=== PATIENT | female | born 1990 | race Caucasian/White ===

== ENCOUNTER 2022-12-05 18:26 | Emergency (ER) | payer OTHER, SELFPAY ==
[2022-12-05 18:35] VITALS: BP 126/82; PULSE 98; RESP 16; TEMP 36.6; O2SAT 100
--- NOTE | 2022-12-05 18:38 | ED.URI ---
HPI - URI/Sore Throat General Chief Complaint: Upper Respiratory Infection Stated Complaint: SWOLLEN TONSILS/SORE THROAT Time Seen by Provider: 12/05/22 18:45 Source: patient and RN notes reviewed Mode of arrival: ambulatory Limitations: no limitations History of Present Illness HPI Narrative: 32-year-old female presents with concern for sore throat, swollen tonsils. She reports she noticed some change starting over the weekend, she noticed large tonsils and white on her throat today. She denies fever, aches, chills, sweats, nasal congestion, rhinorrhea, body aches, chills, sweats, swollen lymph nodes, fatigue. MD elicited complaint: sore throat Related Data Allergies Allergy/AdvReac Type Severity Reaction Status Date / Time No Known Allergies Allergy Verified 12/05/22 18:53 Review of Systems Review of Systems: CONSTITUTIONAL: Denies malaise, chills, sweats, or fever. EYES: Denies visual changes, redness, or discharge. ENT: Denies rhinorrhea, congestion, sinus pain, otalgia. Reports sore throat. CARDIOVASCULAR: Denies chest pain, palpitations, or edema. RESPIRATORY: Denies cough. Denies dyspnea. GASTROINTESTINAL: Denies abdominal pain, nausea, vomiting, diarrhea SKIN: Denies rash or itching. MUSCULOSKELETAL: Denies myalgia. NEUROLOGIC: Denies headache. All systems reviewed & are unremarkable except as noted in HPI and below PMFSH Family History Family History (Updated 06/11/14 @ 07:13 by DOCTOR UNKNOWN) Mother Family history of osteoporosis Family history of lung cancer Patient's mother is Other Diabetes mellitus Family history of migraine headaches Hypertension Social History Social History Smoking status: Never smoker Second hand tobacco smoke exposure: No Alcohol intake: current Comments At time of signature, agree with nursing past medical, surgical, social and family history. There is no relevant family history pertinent to the presenting complaint Exam Narrative: GENERAL: Well-appearing, well-nourished, and in no acute distress. HEAD: Normocephalic EYES: PERRLA, conjunctivae clear ENT: Nares clear, no discharge. Mucous membranes moist. TM pearly duron with sharp light reflex bilaterally; no tragal tenderness. Oropharynx erythematous without lesions. Tonsils enlarged with copious exudate, no drooling, no hoarseness, no trismus, uvula midline. NECK: Supple. No lymphadenopathy CHEST: Clear to auscultation, breath sounds equal. No wheezing, rhonchi, rales, or stridor. No respiratory distress, speaks in full sentences. HEART: Regular rate and rhythm. No murmur heard. SKIN: Warm, dry, no rash. NEURO: Alert and oriented x3. PSYCH: Normal mood and affect Course Course Emergency Course: Patient is aware of diagnosis, understands and agrees to treatment plan. Anticipatory guidance given. Patient agrees to follow-up as directed and is aware of reasons to seek care at the emergency department. Portions of this record may have been created with voice recognition software Level of Care: Express Care Visit Vital Signs Vital signs: Vital Signs Temperature 97.8 F 12/05/22 18:35 Pulse Rate 98 12/05/22 18:35 Respiratory Rate 16 12/05/22 18:35 Blood Pressure 126/82 12/05/22 18:35 Pulse Oximetry 100 12/05/22 18:35 Oxygen Delivery Room Air 12/05/22 18:35 Temperature 97.8 F 12/05/22 18:35 Pulse Rate 98 12/05/22 18:35 Respiratory Rate 16 12/05/22 18:35 Blood Pressure 126/82 12/05/22 18:35 Pulse Oximetry 100 12/05/22 18:35 Oxygen Delivery Room Air 12/05/22 18:35 Reviewed. MDM - URI/Sore Throat MDM Narrative Medical decision making narrative: Differential diagnosis considered: Laguerre virus, strep pharyngitis, allergic rhinitis, upper respiratory tract infection, sinusitis, rhinosinusitis, nasopharyngitis. viral pharyngitis, otitis media, otitis externa, pneumonia, bronchitis, viral cough syndrome, viral syndrome, and influenza.
== END 2022-12-05 18:56 | disposition home or self-care (01) ==
PROVIDERS: Emergency Provider Nurse Practitioner; PCP Nurse Practitioner Family
DX: J03.90 Acute tonsillitis, unspecified (principal)
CPT/HCPCS: 87081; 87880; 99203; G0463

== ENCOUNTER 2024-07-24 16:04 | Inpatient (IN) | payer OTHER, SELFPAY ==
[2024-07-24] VITALS (18 sets, daily range): BP systolic 106–131; BP diastolic 52–72; PULSE 66–87; TEMP 36.3–36.4; BMI 28.4
--- NOTE | 2024-07-24 16:04 | LDADM ---
This patient, Kina Madera, was admitted to Labor/Delivery/Recovery 106 on 07/24/24 at 16:04. Plans for labor, pain management and were discussed with patient. Patient/family oriented to hospital policies and general routines including ID bracelet, bed and alarms, visiting hours, pain management, procedures, bathroom and other care routines, personal items, smoking policy, room service/diet and guest tray routines, infant security routines, and visiting hours. Patient/Family are encouraged to report perceived risks to care and to ask questions if they do not understand what they are told or what they should do. See OBIX for further documentation.
--- NOTE | 2024-07-24 18:08 | WPDOBADMIT ---
Obstetrics - Admit Note Admission Note: record reviewed. No pertinent additions to the history and/or any subsequent changes in the physical findings that are not consistent with the expected course of the were found. Additions to the history and/or subsequent changes in the physical findings follow. admit for IOL for postdates, has been uncomplicated, anticipate vaginal delivery
[2024-07-24 18:11] LABS: Basophils Percent Auto 0.3 % (0.2-1.2); Eosinophils Percent Auto 0.1 % (0-4.4); Hematocrit 33.1 % (37.0-47.0); Hemoglobin 11.2 g/dL (12.0-15.0); Immature Granulocyte Absolute 0.05 K/mm3 (0.00-0.031); Immature Granulocyte Percent A 0.4 % (0-0.5); Lymphocytes Absolute Auto 1.56 K/mm3 (0.9-3.2); Lymphocytes Percent Auto 13.9 % (18.3-44.2); Mean Corpuscular HGB Conc 33.8 g/dl (32-36); Mean Corpuscular Volume 88.7 fl (80-100); Mean Platelet Volume 10.1 fl (7.4-10.4); Monocytes Absolute Auto 0.6 K/mm3 (0.1-0.6); Monocytes Percent Auto 5.1 % (2.6-8.5); Neutrophils Percent Auto 80.2 % (45.5-73.1); Platelet Count Result 251 k/mm3 (150-375); Red Blood Count 3.73 M/mm3 (4.2-5.4); Red Cell Distribution Width 13.2 % (11.5-14.5); White Blood Count 11.3 K/mm3 (4.5-10.0)
--- NOTE | 2024-07-24 18:15 | WPDANESEPP ---
Anes - Eval Pre Procedure Procedure: Labor Epidural Date/Time: 07/24/24 18:15 Surgeon: Hawk Preop Diagnosis: Labor Pain Pre Op Diagnosis: IOL Patient Data Age: 33 Gender: F Height: 1.52 m Weight: 66 kg Allergies Allergy/AdvReac Type Severity Reaction Status Date / Time sulfamethoxazole Allergy Hives Verified 06/18/24 15:31 [From Bactrim] trimethoprim [From Bactrim] Allergy Hives Verified 06/18/24 15:31 Home Medications Medication Instructions Recorded Confirmed Type aspirin 81 mg chewable tablet 81 mg PO DAILY 06/18/24 06/18/24 History ferrous sulfate 325 mg (65 mg 325 mg PO DAILY 06/18/24 06/18/24 History iron) tablet vits no.126-ferrous fum 1 tablet PO DAILY 06/18/24 06/18/24 History 28 mg iron-folic acid 800 mcg tablet (Classic ) Laboratory Tests 07/24/24 17:00 WBC 11.3 H K/mm3 (4.5-10.0) RBC 3.73 L M/mm3 (4.2-5.4) Hgb 11.2 L g/dL (12.0-15.0) Hct 33.1 L % (37.0-47.0) MCV 88.7 fl (80-100) MCH 30.0 pg (26-34) MCHC 33.8 g/dl (32-36) RDW 13.2 % (11.5-14.5) Plt Count 251 k/mm3 (150-375) MPV 10.1 fl (7.4-10.4) Immature Gran % (Auto) 0.4 % (0-0.5) Neut % (Auto) 80.2 H % (45.5-73.1) Lymph % (Auto) 13.9 L % (18.3-44.2) [place] % (Auto) 5.1 % (2.6-8.5) Eos % (Auto) 0.1 % (0-4.4) Baso % (Auto) 0.3 % (0.2-1.2) Lymph # (Auto) 1.56 K/mm3 (0.9-3.2) [place] # (Auto) 0.6 K/mm3 (0.1-0.6) Eos # (Auto) 0.0 K/mm3 (0-0.3) Baso # (Auto) 0.0 K/mm3 (0.0-0.1) Abs Immat Gran (auto) 0.05 H K/mm3 (0.00-0.031) Absolute Neuts (auto) 9.0 H K/mm3 (1.3-6.7) Absolute Nucleated RBC 0.000 K/mm3 (0.0-0.012) Nucleated RBC % 0.0 % (0.0-0.2) RPR Pending HIV 1&2 Ab/P24 Ag 4thGn Pending : gestational age ([facility] 07/14/24, ) Patient hx anesthesia problems: none Family hx anesthesia problems: none Results Review: All pre-operative results and documents have been reviewed as part of the pre-operative evaluation. [facility] Family History Family History Mother Family history of osteoporosis Family history of lung cancer Patient's mother is Other Diabetes mellitus Family history of migraine headaches Hypertension Social History Social History Smoking status: Never smoker Second hand tobacco smoke exposure: No Alcohol intake: current Substance use: never Do You Feel Safe in your Home?: Yes Lack of Transportation: No Lack of Food: Never True Current Housing: I Have Housing Concerned About Future Housing: No Difficulty Paying Gas/Electric Bills: No Difficulty Paying for Meds: No Currently Unemployed: No Education: Associate Degree Difficulty w/ Childcare or Family Care: No Spiritual care concerns: No Exam Day of Procedure 07/24/24 18:15
[2024-07-24] MEDS: miSOPROStol 25 MCG TABLET 50 MCG BUCCAL (18:42)
[2024-07-24 19:18] LABS: HIV 1/2 Ab P24 Ag Result Negative (Negative)
[2024-07-24 19:37] LABS: Rapid Plasma Reagin Non-Reactive (NonReactive)
[2024-07-24] MEDS: OXYTOCIN 30 UNITS/NS 500 ML 30 UNITS/500 ML BAG IV CONT (23:42)
[2024-07-24] MEDS: LACTATED RINGERS 1,000 ML 125 ML IV CONT (23:42)
[2024-07-25] VITALS (139 sets, daily range): BP systolic 103–132; BP diastolic 45–89; PULSE 59–293; RESP 16–18; TEMP 36.1–37.4; O2SAT 87–100
[2024-07-25] MEDS: LACTATED RINGERS 1,000 ML 125 ML IV CONT ×4 (07:23→22:40)
[2024-07-25] MEDS: ONDANSETRON INJ 4 MG/2 ML VIAL IV PUSH ×2 (07:43→19:17)
--- NOTE | 2024-07-25 08:12 | PM.OBPNLAB ---
Pain Control Date/time seen: 07/25/24 08:12 Comments: FHR category 1 SROM cleat fluids contractions every 2-3 minutes
--- NOTE | 2024-07-25 09:56 | PC.NURSE ---
0600: Patient decline blood pressures at this time. Patient and her significant other states the blood pressure cuff hurts her arm and she will not keep cuff on during labor. RN explained the importance of monitor maternal vital signs and informed CNM. Orders for intermittent blood pressure checks.
[2024-07-25] MEDS: diphenhydrAMINE HCl INJ 50 MG/ML VIAL 25 MG IV PUSH (19:05)
--- NOTE | 2024-07-25 22:36 | PM.IMHP ---
H&P: HPI History of Present Illness Date/Time: 07/25/24 22:36 Chief Complaint: Term Narrative: this patient is a 33-year-old female who is a 1 at term who was induced for postdates. She has failed to descend after becoming completely dilated. She Has pushed and not made any progress. The patient understands the details of the procedure. The procedure has been explained in detail. She understands the risks. She understands that injuries may occur that result in hospitalization, more surgery, and severe illness. She understands risk of hemorrhage and infection. She denies any chest pain or shortness of breath. She denies any nausea, vomiting, fever, chills. Review of Systems Review of Systems: All systems reviewed & are unremarkable except as noted in HPI and below Constitutional: Constitutional: Denies chills, Denies fatigue, Denies fever(s) and Denies weakness Eyes: Eyes: Denies blurry vision, Denies change in vision, Denies loss of peripheral vision, Denies loss of vision, Denies other visual disturbances and Denies eye pain ENT: Denies vertigo, Denies dizziness, Denies hearing loss, Denies mouth pain, Denies nasal obstruction, Denies neck mass and Denies neck pain Cardiovascular: Cardiovascular: Denies chest pain, Denies diaphoresis, Denies syncope, Denies leg edema and Denies dyspnea Respiratory: Respiratory: Denies chest congestion, Denies cough, Denies hemoptysis, Denies dyspnea and Denies wheezing Gastrointestinal: Gastrointestinal: Denies abdominal pain, Denies constipation, Denies diarrhea, Denies nausea and Denies vomiting Genitourinary: Genitourinary: Denies hematuria, Denies change in libido, Denies nocturia, Denies genital lesions, Denies flank pain and Denies urinary urgency Musculoskeletal: Musculoskeletal: Denies abnormal gait, Denies back pain, Denies myalgias, Denies arthralgias, Denies joint swelling, Denies muscle weakness and Denies neck pain Integumentary/Breasts: Skin/Breast: Denies swelling, Denies breast pain, Denies breast mass, Denies dry skin, Denies nipple discharge, Denies unusual bruising and Denies jaundice Neurologic: Denies Neuro-related abnormal movements, Denies Abnormal speech present, Denies abnormal gait, Denies behavioral changes, Denies confusion, Denies vertigo, Denies dizziness, Denies syncope, Denies loss of vision, Denies memory loss, Denies convulsions and Denies weakness Psychiatric: Psychiatric: Denies abnormal sleep pattern, Denies behavioral changes, Denies change in libido, Denies confusion, Denies depression, Denies anhedonia and Denies memory loss Endocrine: Endocrine: Reports no additional endocrine complaints, Denies change in libido and Denies fatigue Hematologic/Lymphatic: Hematologic/Lymphatic: Reports no additional hematologic/lymphatic complaints Allergic/Immunologic: Allergic/Immunologic: Reports no additional allergic/immunologic complaints and Denies wheezing PMFSH Family History Family History Mother Family history of osteoporosis Family history of lung cancer Patient's mother is Other Diabetes mellitus Family history of migraine headaches Hypertension Social History Social History Smoking status: Never smoker Second hand tobacco smoke exposure: No Alcohol intake: current Substance use: never Do You Feel Safe in your Home?: Yes Lack of Transportation: No Lack of Food: Never True Current Housing: I Have Housing Concerned About Future Housing: No Difficulty Paying Gas/Electric Bills: No Difficulty Paying for Meds: No Currently Unemployed: No Education: Associate Degree Difficulty w/ Childcare or Family Care: No Spiritual care concerns: No Meds Home Medications and Allergies Home Medications Medication Instructions Recorded Confirmed Type aspirin 81 mg chewable tablet 81 mg PO DAILY 06/18/24 06/18/24 History alexandre
--- NOTE | 2024-07-25 22:39 | WPDHPUPDATE1 ---
History and Physical Update Update Date/Time: 07/25/24 22:39 History and Physical has been reviewed, including an updated exam of the patient. There are NO changes in the patient's condition. Risks, benefits, and alternatives have been discussed and questions answered. Patient agrees to proceed with procedure.
[2024-07-25] MEDS: ACETAMINOPHEN 500 MG TABLET 1000 MG PO (22:40)
[2024-07-25] MEDS: FAMOTIDINE 20 MG/2 ML VIAL IV PUSH (22:40)
[2024-07-25] MEDS: AZITHROMYCIN 500 MG/NS 250 ML 500 MG/250 ML BAG 250 MG IVPB (22:45)
[2024-07-25] MEDS: ceFAZolin 2 GM/D5W 50 ML 2 GM/50 ML BAG IVPB (23:10)
--- NOTE | 2024-07-25 23:50 | W.PM.OBCSD ---
OB - Delivery Note Procedure Delivery date: 07/25/24 Pre-op diagnosis: Arrest of Decent Post-op Diagnosis: Same Induction method: AROM and Per Pitocin Protocol Delivery monitor: External FHT and External Uterine Procedure Performed: Primary Surgeon: Shai Arechiga MD Anesthesia type: Epidural Description of Procedure/Findings: The patient was taken the operating room.? She was prepped and draped in dorsal supine position with a leftward tilt.? This was done after spinal anesthetic was applied.? A low-transverse skin incision was made and carried down till of the fascia with the knife.? The fascial incision was made with the knife.? The fascial incision was extended laterally with Jackson scissors.? The fascia was tented upward superiorly and inferiorly the rectus muscles were dissected off bluntly.? The rectus muscles were the midline.? The preperitoneal fat and peritoneum were dissected open bluntly at the superior aspect of the rectus muscles.? The peritoneal incision was extended superior and inferior with good position of bladder.? The uterine incision was made with a scalpel down to the level of the amniotic cavity.? The amniotic cavity was entered bluntly.? The infant was delivered.? The cord was clamped and cut and the was handed off to waiting pediatric staff.? Cord bloods were obtained.? The placenta was removed manually.? The uterus was exteriorized.? The uterus was cleared of all clots, debris and membranes.? The uterus was closed in 0 Vicryl running lock fashion.? An imbricating over a was placed along the incision line as well.? The uterus was returned to the abdomen.? The gutters were cleared of all clots and debris.? The fascia was closed with 0 Vicryl running fashion.? The subcutaneous tissue was irrigated pinpoint bleeders were cauterized.? The skin was closed with subcuticular absorbable silke.? The skin incision line was covered with glue.? The patient tolerated the procedure well.? She has taken recovery room in stable condition.? Sponge lap and needle counts were correct x2.?
[2024-07-26] VITALS (48 sets, daily range): BP systolic 76–122; BP diastolic 24–68; PULSE 77–101; RESP 12–19; TEMP 36.6–37.5; O2SAT 96–99
--- NOTE | 2024-07-26 02:20 | OBPPTRN ---
Patient transferred to post room #284 via stretcher. Support person present. Oriented to unit, room, information board, rooming in, admission packet and security measures. Patient verbalizes understanding.
[2024-07-26] MEDS: KETOROLAC 15 MG/ML VIAL (*BKC) IV PUSH ×4 (02:39→20:51)
[2024-07-26] MEDS: DEXTROSE 5%/0.45% SOD CHL 1,000 ML 125 ML IV CONT (04:25)
[2024-07-26 05:50] LABS: Basophils Absolute Auto 0.1 K/mm3 (0.0-0.1); Basophils Percent Auto 0.3 % (0.2-1.2); Eosinophils Absolute Auto 0.2 K/mm3 (0-0.3); Eosinophils Percent Auto 0.7 % (0-4.4); Hematocrit 26.9 % (37.0-47.0); Hemoglobin 9.6 g/dL (12.0-15.0); Immature Granulocyte Absolute 0.12 K/mm3 (0.00-0.031); Immature Granulocyte Percent A 0.6 % (0-0.5); Lymphocytes Percent Auto 4.7 % (18.3-44.2); Mean Corpuscular HGB Conc 35.7 g/dl (32-36); Mean Corpuscular Hemoglobin 31.6 pg (26-34); Mean Corpuscular Volume 88.5 fl (80-100); Mean Platelet Volume 10.5 fl (7.4-10.4); Monocytes Percent Auto 4.5 % (2.6-8.5); Neutrophils Percent Auto 89.2 % (45.5-73.1); Platelet Count Result 207 k/mm3 (150-375); Red Blood Count 3.04 M/mm3 (4.2-5.4); Red Cell Distribution Width 13.4 % (11.5-14.5); White Blood Count 21.3 K/mm3 (4.5-10.0)
--- NOTE | 2024-07-26 06:48 | WPDANLDPN2 ---
Anes-Prog Note L&D Date/Time: 07/26/24 06:48 Comfortable throughout: labor and section Neuraxial method: epidural Epidural/Spinal procedure site: clean & non-tender Neuro status: Neuro function grossly intact. Cardiovascular status: normal Respiratory status: normal Airway patency: baseline Mental status: baseline Post-Op hydration status: normal Vital Signs: Last Vital Signs Temp 37.5 C 07/26/24 02:40 Pulse 88 07/26/24 02:40 Resp 12 07/26/24 02:40 BP 109/57 L 07/26/24 02:40 Pulse Ox 96 07/26/24 02:40 O2 Del Method Room Air 07/26/24 02:00 Pain score (VAS): 2 I/O: Intake & Output 07/25/24 07/25/24 07/26/24 15:59 23:59 07:59 Intake Total 956.3 1000 Balance 956.3 1000 Patient feedback: Patient satisfied with anesthetic care.
--- NOTE | 2024-07-26 06:49 | WPDANLDNPN2 ---
Anes-Prog Note L&D-Neuraxial Date/Time: 07/26/24 06:49 Neuraxial medications: epidural PF morphine Opiod-related complaints: none Patient feedback: Patient satisfied with post-operative pain management.
--- NOTE | 2024-07-26 07:00 | PC.NURSE ---
Introductions were made, then consulted with patient to assess needs related to . Mother led the conversation with her?plans to feed?her and the?experience so far. Overnight, mother was introduced to the breast pump due to inability to latch . Encouraged understanding of the benefits of skin to skin, stimulating with massage touch, changing positions to encourage wakefulness, how to watch for early feeding cues, responsive feeding, feeding on demand (aiming for 8-12 times in 24 hours, about every 2-3 hours), milk production, building/maintaining a milk supply, duration of feeding, signs of adequate intake/output and how to record on the feeding sheet. Mother is not confident when handling infant and needs assistance when trying to place infant to breast. Reviewed positioning and ear, shoulder, hip alignment, supporting the breast to facilitate a deep latch, asymmetrical latch (off-center), leading with the chin with a big, open, wide gape and body close to mother. Education given to the mother of how to visualize the suckling (with good rocking jaw motion), swallows (dropping of the lower jaw) and how to listen for drinking at the breast (the ka sound). Infant was unable to maintain latch. Nipple shield provided to mother due to infants inability to maintain latch due to tongue sucking. Reviewed good handwashing, cleaning the nipple shield and the appropriate way to apply and use as a tool. Discussed with mom the nipple shield precautions, possible complications associated with the risks and benefits. Reviewed practicing with a nipple shield, then without and how to protect the milk supply and production. Reviewed comfort measures of healing with a warm, wet washcloth to rinse breast, then leave open to air-dry, good handwashing when or touching the breast/nipples to prevent infection. Mother voiced understanding of skin to skin, stimulating with massage touch, responsive feedings, hand expressed colostrum, talking to infant to encourage if it has been 2 -2.5 hours since the start of the last , to call if does not latch, or if there is discomfort with . Resources used for education were facilitated with the [visual educational handouts/ tool/mom and baby guide], Inpatient/outpatient resources provided with business card, feeding sheet, name written on the communication board, and the mom/baby guide. Parents voiced understanding of information, demonstrated learning and will call if there is a request for assistance. Instructions given on cleaning, care, usage, that there should be no pain, pumping schedule for milk production, collection, and storage of human milk with breast pump. Patient was assessed for correct placement, flange size, to pump for comfort and nipple stretching/stimulation for adequate milk production every 3 hours (8 times in 24 hours) 1-2 times at night. Parents are encouraged to record the pumping schedule on the feeding sheet.?
--- NOTE | 2024-07-26 07:15 | PC.NURSE ---
Mother was able to pump breastmilk. Breastmilk is brown in color. Education provided to mother about different colors of breastmilk being safe for .
--- NOTE | 2024-07-26 07:15 | PM.OBPNVD ---
OB - PN: Subj Subjective Date/time seen: 07/26/24 07:15 Interval history: pp day 1 doing well has not had solid food yet, has had liquids, tolerating well OB - PN: Obj Data Labs 07/26/24 04:58 Labs: Laboratory Results - last 24 hr 07/26/24 04:58 WBC 21.3 H RBC 3.04 L Hgb 9.6 L Hct 26.9 L MCV 88.5 MCH 31.6 D MCHC 35.7 RDW 13.4 Plt Count 207 MPV 10.5 H Immature Gran % (Auto) 0.6 H Neut % (Auto) 89.2 H Lymph % (Auto) 4.7 L [place] % (Auto) 4.5 Eos % (Auto) 0.7 Baso % (Auto) 0.3 Lymph # (Auto) 1.00 [place] # (Auto) 1.0 H Eos # (Auto) 0.2 Baso # (Auto) 0.1 Abs Immat Gran (auto) 0.12 H Absolute Neuts (auto) 19.0 H Absolute Nucleated RBC 0.000 Nucleated RBC % 0.0 OB - PN A/P Plan day: 1 Plan: routine care Time Spent With Patient Time: Total time spent is greater than 50% in coordination of care (as documented) at patient's floor/unit and/or counseling patient: Review of Systems Review of Systems: All systems reviewed & are unremarkable except as noted in HPI and below Exam Const: General: cooperative and healthy appearing Chest: Chest palpation & inspection: normal inspection of the chest Cardio: Rate: regular rate GI: Other: incision CDI Skin: General skin exam: normal color Neuro: General: patient oriented x3 Psych: Appearance: grossly normal
[2024-07-26] MEDS: ACETAMINOPHEN 325 MG TABLET 650 MG PO ×3 (08:52→20:52)
[2024-07-26] MEDS: POLYSACCHARIDE IRON COMPLEX 150 MG CAPSULE PO ×2 (08:53→17:29)
[2024-07-26] MEDS: MULTIVIT/MIN/PREN/FOL AC/IRON TABLET 1 TAB PO (08:53)
[2024-07-26] MEDS: DOCUSATE SODIUM 100 MG CAPSULE PO ×2 (08:53→17:29)
[2024-07-26] MEDS: SIMETHICONE 80 MG TAB.CHEW PO ×3 (08:53→17:29)
--- NOTE | 2024-07-26 12:05 | PC.NURSE ---
Called to room by mother to assist with latching . Nipple shield in place and infant latched to the right side in football position. Maximum assistance provided.
[2024-07-26] MEDS: KCL 20 MEQ/D5/0.45% SOD CHL 1,000 ML 125 ML IV CONT (12:28)
[2024-07-26] MEDS: LIDOCAINE 5% PATCH 1 PATCH TRANSDERM (14:35)
[2024-07-27 01:10] VITALS: BP 106/58; PULSE 81; RESP 16; TEMP 36.6; O2SAT 98
[2024-07-27] MEDS: ACETAMINOPHEN 325 MG TABLET 650 MG PO ×4 (03:09→21:07)
[2024-07-27] MEDS: IBUPROFEN 600 MG TABLET PO ×4 (03:10→21:07)
[2024-07-27 07:44] VITALS: BP 106/52; PULSE 76; RESP 18; TEMP 36.5; O2SAT 98
--- NOTE | 2024-07-27 08:47 | PM.OBPNVD ---
OB - PN: Subj Subjective Date/time seen: 07/27/24 08:47 Interval history: pp day 1 doing well has not had solid food yet, has had liquids, tolerating well Patient comments: no complaints, pain well controlled and tolerating diet OB - PN: Obj Data Labs 07/26/24 04:58 OB - PN A/P Plan day: 2 Plan: routine care and discharge home Time Spent With Patient Time: Total time spent is greater than 50% in coordination of care (as documented) at patient's floor/unit and/or counseling patient: Exam Const: General: comfortable and no acute distress Resp: Effort & Inspection: normal respiratory effort Auscultation: no rales, no rhonchi and no wheezes Cardio: Rate: regular rate Heart sounds: no click, no murmurs and no rubs GI: GI Palp: Yes Soft to palpation and No Tenderness to palpation present (GI) Auscultation: normal bowel sounds Extrem: General: normal to inspection, no pedal edema and no calf tenderness
--- NOTE | 2024-07-27 08:48 | PM.OBDSVD ---
DS: Admitting Diagnosis Discharge Date July 27, 2020 Admitting Diagnosis term DS: Discharge Diagnosis Discharge Diagnosis (1) Post term , delivered: Code(s): O48.0 - Post-term Status: Acute OB - DS: Summary OB Procedures : None OB Procedures Intrapartum: Spontaneous Vag Delivery OB Procedures: : None Peripartum Data Procedures: Procedures Operation Date: 07/25/24 22:45 Actual Procedure Side Surgeon p Section Not Applicable Shai Arechiga MD Time Spent with Patient Time attestation: Total time spent providing and/or coordinating discharge services: Discharge Plan Discharge Discharging Clinician: Shai Arechiga Patient Disposition: Home, Self-Care Activity: pelvic rest Diet: regular Patient Instructions: Antibiotic Form Stand Alone Forms: General Discharge Information Follow-up/Referrals: Shai Arechiga MD [Physician] - Discharge Medications: Continued Classic 28 mg iron- 800 mcg Tablet 1 tablet PO DAILY ferrous sulfate 325 mg (65 mg iron) Tablet 325 mg PO DAILY aspirin [Adult Aspirin] 81 mg Tablet,Chewable 81 mg PO DAILY Date of admission: 07/24/24 16:04 Primary Care Provider: LloydFior Admitting Provider: Shai Arechiga Attending physician on admission: Shai Arechiga Condition: Stable
--- NOTE | 2024-07-27 08:51 | PM.OBPNVD ---
OB - PN: Subj Subjective Date/time seen: 07/27/24 08:51 Interval history: pp day 1 doing well has not had solid food yet, has had liquids, tolerating well Patient comments: no complaints, pain well controlled and tolerating diet OB - PN: Obj Data Labs 07/26/24 04:58 OB - PN A/P Plan day: 2 Plan: routine care and discharge home Time Spent With Patient Time: Total time spent is greater than 50% in coordination of care (as documented) at patient's floor/unit and/or counseling patient: Exam Const: General: comfortable and no acute distress Resp: Effort & Inspection: normal respiratory effort Auscultation: no rales, no rhonchi and no wheezes Cardio: Rate: regular rate Heart sounds: no click, no murmurs and no rubs GI: GI Palp: Yes Soft to palpation and No Tenderness to palpation present (GI) Auscultation: normal bowel sounds Extrem: General: normal to inspection, no pedal edema and no calf tenderness
--- NOTE | 2024-07-27 08:51 | PM.OBDSVD ---
DS: Admitting Diagnosis Discharge Date July 27, 2024 Admitting Diagnosis term DS: Discharge Diagnosis Discharge Diagnosis (1) Term delivered: Code(s): O80 - Encounter for full-term uncomplicated delivery Status: Acute OB - DS: Summary OB Procedures : None OB Procedures Intrapartum: Spontaneous Vag Delivery OB Procedures: : None Peripartum Data Procedures: Procedures Operation Date: 07/25/24 22:45 Actual Procedure Side Surgeon p Section Not Applicable Shai Arechiga MD Time Spent with Patient Time attestation: Total time spent providing and/or coordinating discharge services: Discharge Plan Discharge Discharging Clinician: Shai Arechiga Patient Disposition: Home, Self-Care Activity: pelvic rest Diet: regular Patient Instructions: Antibiotic Form Stand Alone Forms: General Discharge Information Follow-up/Referrals: Shai Arechiga MD [Physician] - Discharge Medications: Continued Classic 28 mg iron- 800 mcg Tablet 1 tablet PO DAILY ferrous sulfate 325 mg (65 mg iron) Tablet 325 mg PO DAILY aspirin [Adult Aspirin] 81 mg Tablet,Chewable 81 mg PO DAILY Date of admission: 07/24/24 16:04 Primary Care Provider: LloydFior Admitting Provider: Shai Arechiga Attending physician on admission: Shai Arechiga Condition: Stable
[2024-07-27] MEDS: POLYSACCHARIDE IRON COMPLEX 150 MG CAPSULE PO ×2 (09:03→17:17)
[2024-07-27] MEDS: SIMETHICONE 80 MG TAB.CHEW PO ×3 (09:03→17:17)
[2024-07-27] MEDS: DOCUSATE SODIUM 100 MG CAPSULE PO ×2 (09:03→17:17)
[2024-07-27] MEDS: MULTIVIT/MIN/PREN/FOL AC/IRON TABLET 1 TAB PO (09:03)
[2024-07-27 23:46] VITALS: BP 118/49; PULSE 59; RESP 18; TEMP 36.8; O2SAT 99
[2024-07-27] MEDS: HYDROcodone/acetaminophen (*CRX) 5-325 MG TABLET 1 TAB PO (23:46)
[2024-07-27] MEDS: LIDOCAINE 5% PATCH 1 PATCH TRANSDERM (23:46)
[2024-07-28] MEDS: ACETAMINOPHEN 325 MG TABLET 650 MG PO ×2 (03:47→10:17)
[2024-07-28] MEDS: IBUPROFEN 600 MG TABLET PO ×2 (03:48→10:18)
--- NOTE | 2024-07-28 08:45 | PM.OBPNVD ---
OB - PN: Subj Subjective Date/time seen: 07/28/24 08:45 Interval history: pp day 3 Patient in bathroom, discussed with partner doing well, pain controlled tolerating general diet /pumping ready for discharge home OB - PN: Obj Data Labs 07/26/24 04:58 OB - PN A/P Assessment and Plan (1) S/P : Code(s): Z98.891 - History of uterine scar from previous surgery Status: Acute Plan day: 3 Plan: routine care and discharge home Time Spent With Patient Time: Total time spent is greater than 50% in coordination of care (as documented) at patient's floor/unit and/or counseling patient: Review of Systems Review of Systems: All systems reviewed & are unremarkable except as noted in HPI and below
--- NOTE | 2024-07-28 08:48 | PM.OBDSVD ---
DS: Admitting Diagnosis Discharge Date 07/28/24 Admitting Diagnosis labor DS: Discharge Diagnosis Discharge Diagnosis (1) S/P : Code(s): Z98.891 - History of uterine scar from previous surgery Status: Acute OB - DS: Summary OB Procedures : None OB Procedures Intrapartum: low cervical, transverse OB Procedures: : None Peripartum Data Procedures: Procedures Operation Date: 07/25/24 22:45 Actual Procedure Side Surgeon p Section Not Applicable Shai Arechiga MD Time Spent with Patient Time attestation: Total time spent providing and/or coordinating discharge services: Discharge Plan Discharge Attending physician on discharge: Parker Kong Discharging Clinician: Parker Kong Patient Disposition: Home, Self-Care Activity: pelvic rest Diet: regular Patient Instructions: Antibiotic Form Stand Alone Forms: General Discharge Information Follow-up/Referrals: Shai Arechiga MD [Physician] - Discharge Medications: New hydrocodone-acetaminophen 5-325 mg Tablet 1 tablet PO Q3H PRN (Reason: Breakthrough Pain Rated 4-6) Qty: 18 0RF ibuprofen 600 mg Tablet 600 mg PO Q6H Qty: 30 0RF docusate sodium 100 mg Capsule 100 mg PO BID Qty: 60 0RF Continued Classic 28 mg iron- 800 mcg Tablet 1 tablet PO DAILY ferrous sulfate 325 mg (65 mg iron) Tablet 325 mg PO DAILY aspirin [Adult Aspirin] 81 mg Tablet,Chewable 81 mg PO DAILY Date of admission: 07/24/24 16:04 Primary Care Provider: TessaFior Admitting Provider: Shai Arechiga Attending physician on admission: Shai Arechiga Condition: Stable
[2024-07-28 08:50] VITALS: BP 114/64; PULSE 72; RESP 16; TEMP 36.9; O2SAT 100
--- NOTE | 2024-07-28 09:40 | PC.NURSE ---
Consulted with patient to assess needs related to . Discussed with mother her successes, concerns and any questions she has. We reviewed supply and demand, being consistent with pumping if not putting baby to breast, and how to go home while attempt, pump, and bottle feeding. Encouraged understanding the benefits of responding to feeding cues, frequencies of feeding 8-12 times in 24 hours (approximately 2-3 hours), milk production, intake/output feeding sheet. We measured her (24mm) and her 27mm flanges are correct. She still has to buy her own pump and be reimbursed through her insurance. She would like to get a Spectra, reviewed that this is a good quality pump. Encouraged parents to call out for feeding assistance and a latch check. Resources used to facilitate learning were used from the [visual handouts/mom and baby guide]. Mother voiced understanding of the education shared, to call for assistance if the infant does not latch or if there is discomfort with . Reported to the Primary RN.
[2024-07-28] MEDS: MULTIVIT/MIN/PREN/FOL AC/IRON TABLET 1 TAB PO (10:18)
[2024-07-28] MEDS: POLYSACCHARIDE IRON COMPLEX 150 MG CAPSULE PO (10:18)
[2024-07-28] MEDS: SIMETHICONE 80 MG TAB.CHEW PO (10:19)
[2024-07-30 11:21] VITALS: BP 156/68; PULSE 82; RESP 18; TEMP 36.8; O2SAT 100
== END 2024-07-28 14:57 | disposition home or self-care (01) | DRG 788 ==
LOC: ANHLDR 07-26 04:01 → ANHOB2 07-27 08:49 → ANHLDR 07-29 10:46 → ANHOB2 07-29 10:46
PROVIDERS: Advanced Practice Midwife; Admitting Provider Obstetrics & Gynecology; PCP Nurse Practitioner; Visit Provider Obstetrics & Gynecology
PROC: 10D00Z1 Extraction of Products of Conception, Low, Open Approach (ICD-10-PCS; CPT 59514; principal; 2024-07-25 22:45)
DX: O48.0 Post-term pregnancy (principal); Z37.0 Single live birth; Z3A.41 41 weeks gestation of pregnancy; O77.0 Labor and delivery complicated by meconium in amniotic fluid; O62.2 Other uterine inertia
CPT/HCPCS: 36415; 85025; 86592; 86703; 86850; 86900; 86901; A9270; G0432; J0456; J0690; J1200; J1885; J2274; J2405; J2590; J2795; J3480; J7120

== ENCOUNTER 2024-07-30 13:45 | Observation (INO) | payer OTHER, SELFPAY ==
[2024-07-30] VITALS (11 sets, daily range): BP systolic 117–161; BP diastolic 60–75; PULSE 51–62
[2024-07-30 12:35] LABS: Basophils Percent Auto 0.3 % (0.2-1.2); Eosinophils Absolute Auto 0.1 K/mm3 (0-0.3); Eosinophils Percent Auto 0.7 % (0-4.4); Hematocrit 28.1 % (37.0-47.0); Hemoglobin 9.4 g/dL (12.0-15.0); Immature Granulocyte Absolute 0.07 K/mm3 (0.00-0.031); Immature Granulocyte Percent A 0.8 % (0-0.5); Lymphocytes Absolute Auto 1.68 K/mm3 (0.9-3.2); Lymphocytes Percent Auto 18.4 % (18.3-44.2); Mean Corpuscular HGB Conc 33.5 g/dl (32-36); Mean Corpuscular Hemoglobin 29.8 pg (26-34); Mean Corpuscular Volume 89.2 fl (80-100); Mean Platelet Volume 8.9 fl (7.4-10.4); Monocytes Absolute Auto 0.4 K/mm3 (0.1-0.6); Monocytes Percent Auto 4.8 % (2.6-8.5); Neutrophils Absolute Auto 6.9 K/mm3 (1.3-6.7); Platelet Count Result 349 k/mm3 (150-375); Red Blood Count 3.15 M/mm3 (4.2-5.4); Red Cell Distribution Width 13.2 % (11.5-14.5); White Blood Count 9.2 K/mm3 (4.5-10.0)
[2024-07-30 12:49] LABS: Alanine Aminotransferase 26 U/L (6-35); Albumin Level 3.2 g/dL (3.5-5.1); Alkaline Phosphatase 137 U/L (38-126); Anion Gap 5 mmol/L (4-12); Aspartate Amino Transferase 40 U/L (14-36); Bilirubin,Total 0.3 mg/dL (0.2-1.3); Blood Urea Nitrogen 12 mg/dL (7-17); Calcium 8.6 mg/dL (8.4-10.2); Carbon Dioxide 24 mmol/L (22-30); Chloride 106 mmol/L (98-107); Estimated Glomerular Filt Rate > 60; Glucose 83 mg/dL (65-110); Potassium 3.9 mmol/L (3.4-5.0); Sodium 135 mmol/L (137-145); Uric Acid 3.1 mg/dL (2.5-7.5)
--- NOTE | 2024-07-30 13:42 | PC.NURSE ---
Uriel Hackett CNM on unit and updated on BP's and lab results including AST of 40. Orders received for Labetalol PO and repeat labs in 6 hrs.
--- NOTE | 2024-07-30 14:06 | PC.NURSE ---
Called Uriel Hackett CNM, but she is in a room and will call me back.
--- NOTE | 2024-07-30 14:29 | PC.NURSE ---
Uriel Hackett CNM informed of drop in BP's to 117- 120's / 60's. Order received to cancel Labetalol. CNM wanted to know if pt has the ability to check her BP at home which she does. Order for discharge, monitoring of BP at home, and office visit on Sunday with lab follow up then received.
[2024-07-30] MEDS: IBUPROFEN 600 MG TABLET PO (15:37)
--- NOTE | 2024-07-30 15:37 | PC.NURSE ---
Offered pt a Motrin before discharge because they are stopping by [employer] to pick up operator a breast pump before going home.
--- NOTE | 2024-08-01 16:05 | PM.OBTRLD ---
OB - Triage/Final Diagnosis Visit Information Date of evaluation: 07/30/24 Reason for evaluation: other (elevated bp) Comments/Additional reasons for admission: I have assessed the risk for this patient, Kina Madera, and determined that she would benefit from observation care. Evaluation Laboratory results: Laboratory Tests 07/30/24 12:24 WBC 9.2 RBC 3.15 L Hgb 9.4 L Hct 28.1 L MCV 89.2 MCH 29.8 D MCHC 33.5 RDW 13.2 Plt Count 349 D MPV 8.9 Immature Gran % (Auto) 0.8 H Neut % (Auto) 75.0 H Lymph % (Auto) 18.4 [place] % (Auto) 4.8 Eos % (Auto) 0.7 Baso % (Auto) 0.3 Lymph # (Auto) 1.68 [place] # (Auto) 0.4 Eos # (Auto) 0.1 Baso # (Auto) 0.0 Abs Immat Gran (auto) 0.07 H Absolute Neuts (auto) 6.9 H Absolute Nucleated RBC 0.000 Nucleated RBC % 0.0 Sodium 135 L Potassium 3.9 Chloride 106 Carbon Dioxide 24 Anion Gap 5 BUN 12 Creatinine 0.50 L Estim Creat Clear Calc Not Reportable Estimated GFR > 60 Glucose 83 Uric Acid 3.1 Calcium 8.6 Total Bilirubin 0.3 AST 40 H ALT 26 Alkaline Phosphatase 137 H Total Protein 6.0 L Albumin 3.2 L
== END 2024-07-30 15:40 | disposition home or self-care (01) ==
LOC: ANHOBOP 13:53 → ANHOBPP 13:53
PROVIDERS: Admitting Provider Obstetrics & Gynecology; PCP Nurse Practitioner; Visit Provider Advanced Practice Midwife
DX: O16.5 Unspecified maternal hypertension, complicating the puerperium (principal)
CPT/HCPCS: 36415; 80053; 84550; 85025; A9270; G0378; G0379

== ENCOUNTER 2024-08-01 14:25 | Outpatient (CLI) | payer OTHER, SELFPAY ==
--- NOTE | 2024-08-01 16:57 | PC.NURSE ---
In- 1427 Out- 1610. Reason for visit: low milk production, latch issues, cracked nipple History: Mom is a , had her baby girl on 07/25/24 & was discharged from the hospital on 07/28/24. Infant was a delivery. Mom reports no significant history that would effect milk production except possible anemia. She reports she was boarderline anemic before she gave . Mom reports she attempted to breastfeed in the hospital only a handful of times and then mostly bottle fed and tried to pump. She reports she hasn't been super consistent with pumping bc it has felt uncomfortable . Mom has been using a spectra pump. Remeasured both nipples and confirmed that mom has been using the correct flange size of 27mm. Mom has been using nipple cream for her nipples and occasionally ice. History: has been primarily bottle fed since and is back up to her weight. Mom reports feeds 8-12 times in 24 hrs, and has at least 6 wet diapers a day and at least 4 poopy diapers a day. Mom reports that she fed at the breast after delivery and then attempted only a handfull of times in the hospital but transitioned to bottle feeding and pumping and has continued with that feeding scdedule. Mom reports she is not producing enough milk to satisfy and would like to increase her supply. Observations: Moms breasts are soft, tender. Moms R breast has a large crack, and is tender, the the breast tissue is soft. Her L breast is soft, and her nipple is tender with some scabbing/scaling noted. Mom reports that there were times she did not pump and left her breasts feeling full bc she did not want to feel uncomfortable. we discussed how milk production works and that you need to empty the breasts to make milk. We discussed that leaving the breasts full will start the process of drying up milk. weight: 7 lb 14oz Lowest weight: 7lb 7oz Last weight: 7lb 8oz Plan of Care: Attempt to bring baby to the breast with the shield and breastfeed for each feeding. If using the shield consider pumping after for 15 min. We discussed that moms milk supply might not be sufficient if baby continues to root after nursing well on both breasts. Supplement baby with formula after if she does not appear content after the feeding. Pump if infant has not had at least 15 min of rhythmic nipple stimulation or if used nipple shield. We also discussed power pumping 1-2 times in a day to increase milk supply. Discussed that powerpumping looks as follows: pump for 20 min then rest for 10 min, then pump for 10 min then rest for ten and repeat the 10 on and 10 off cycle for an hour. We discussed adding in power pumping 1-2 times a day in exchange for a regular pumping session. booklet given to parents as well as feeding log, pumping log and breastmilk storage guidelines. Continue using the shield for nipple discomfort and until the cracked nipple heals. We reviewed how to wean off the nipple shield. Follow up plans: Breastfeed on demand with supplementation after feeding as indicated by baby's feeding cues. Continue pumping to with paying special attention to fully emptying the breast to help increase milk production. Add in power pumping 1-2 times a day as discussed. Encouraged mom to call back to if she has further questions or concerns, is not seeing an increase in her milk supply, or needs more support weaning baby off the nipple shield. Mom agrees with this plan and will call for further assistance as needed. She will continue to follow up with her sweet dough mixer Dr Elise and [employer] Yuko Amaro as scheduled.
== END 2024-08-01 14:26 | disposition home or self-care (01) ==
LOC: ANHOBOP 14:28
PROVIDERS: PCP Nurse Practitioner; Visit Provider Advanced Practice Midwife
DX: O92.3 Agalactia (principal); Z3A.00 Weeks of gestation of pregnancy not specified
CPT/HCPCS: 99213; G0463